=== PATIENT | female | born 1990 | race Caucasian/White ===

== ENCOUNTER 2017-08-11 20:25 | Emergency (ER) | payer OTHER ==
[~2017-08-11] VITALS: Ht 167.6 cm; Wt 64.3 kg
[2017-08-11 20:37] VITALS: TEMP 36.8; Ht 167.6 cm; Wt 64.3 kg
--- NOTE | 2017-08-11 21:22 | EMERGENCY ROOM VISIT NOTE ---
ED Visit Note First contact with patient: 21:10 CHIEF COMPLAINT: Right earache HISTORY OF PRESENT ILLNESS: This 27-year-old female patient presents to the emergency department, ambulatory, with a male friend, complaining of right earache 4 days. The patient states the pain began and was associated with a headache. She states the headache has improved, but the pain remains. She states the pain is intermittent, and associated with muffled hearing in the right ear. She rates the pain 7/10 and describes it as sharp. She states it lasts for a few seconds at a time, then improves. The patient denies any congestion, sore throat, fever, chills, nausea, vomiting, runny nose, sinus pressure, ongoing headache, cough, or other associated symptoms. She has been taking Tylenol about every 4 hours without relief of her pain. The patient has not tried any OTC cold medication or remedies. REVIEW OF SYSTEMS: A 6 system review of systems was performed with positives and pertinent negatives listed in the history of present illness. All other systems were reviewed and are negative. ALLERGIES: None MEDICATIONS: None PMH: None SOCIAL HISTORY: Patient lives locally with family. She denies drug, alcohol, tobacco use. PHYSICAL EXAM: VITALS: Vitals are noted on the nurse's note and reviewed by myself. Vital signs stable. GENERAL: This is a 27-year-old female, in no acute distress, nondiaphoretic, well-developed well-nourished. SKIN: The skin was without rashes, erythema, edema, or bruising. There is no tenting of the skin. Capillary reflex less than 2 seconds. HEAD: Normocephalic atraumatic. EARS: External auditory canals clear, tympanic membranes pearly sandoval without erythema or effusion bilaterally. There is mild fluid level noted behind bilateral TM with associated mild bulging. Serous fluid, no erythema or purulent fluid. EYES: Pupils equal round and reactive to light and accommodation. Conjunctivae without injection, sclerae without icterus. Extraocular movements intact. NOSE: Patent, turbinates without inflammation or discharge. No sinus tenderness. MOUTH: Mucous membranes moist. Tonsils are not enlarged. Pharynx without erythema or exudate. Uvula midline. Airway patent. Tongue does not deviate. NECK: Supple without nuchal rigidity. No lymphadenopathy. No thyromegaly. Cervical spine is nontender. No JVD. HEART: Regular rate and rhythm without murmurs gallops or rubs. LUNGS: Clear to auscultation bilaterally without wheezes, rales or rhonchi. No dullness to percussion. No retractions or accessory muscle use. NEURO: Patient was alert and oriented to person place and time. Normal sensation to light and sharp touch. No focal neurological deficits. EMERGENCY DEPARTMENT COURSE: She was seen and evaluated as above. Discussion with the patient and her male friend at bedside regarding the proper treatment for eustachian tube dysfunction. I do not see any evidence of otitis media or otitis externa. I do not feel that the patient needs an antibiotic at this time. The patient the proper medications to pickle pumper [id number] to help with her discomfort. The patient was discharged home in good condition. I attest that I have personally reviewed the patient's current medication list. Patient was found to have normal blood pressure on screening and does not require follow-up. DIFFERENTIAL DIAGNOSIS: Otitis media, otitis externa, eustachian tube dysfunction, allergic rhinitis, malignancy, and others DIAGNOSIS: Eustachian tube dysfunction DISCHARGE INSTRUCTIONS & TREATMENT: You were seen and evaluated in the emergency department today for right earache , eustachian tube dysfunction. There is no evidence for ear infection at this time. As discussed, use OTC Zyrtec 10mg daily to help drain the fluid from behind your eardrum. You can find this medication over the counter with the allergy medications. As discussed, you should take OTC Mucinex and/or Sudafed for your symptoms. Please do not exceed the recommended daily dosages. Ibuprofen(Motrin, Advil) may be used for fever or pain. Use 600mg every six hours as needed. Take with food. Avoid using more than 2400mg in a 24 hour period. Do not use 2400mg per day for more than three consecutive days without physician direction. Prolonged inappropriate use can lead to stomach upset or ulcers. You may take Naproxen 1-2 tablets twice daily in place of ibuprofen. This medication will help with the swelling in your sinuses. Use this medication to help with earache in place of tylenol and add tylenol for worsening breakthrough pain (AND/OR) Acetaminophen(Tylenol) may be used for fever or pain. Use 1000mg every six hours as needed. Avoid using more than 3000mg in a 24 hour period. For congestion, you may use Flonase OTC. You may want to consider zinc, echinacea, and vitamin C to help boost your immunity. Please get plenty of rest and drink plenty of fluids. Please return or follow-up with your PCP in 1 week if you are not experiencing any improvement in your symptoms. Return to the emergency department for coughing up blood, difficulty breathing, chest pain, worsening symptoms, or for other concerns. Current/Historical Medications No Active Prescriptions or Reported Meds Allergies Coded Allergies: No Known Allergies (Unverified , 08/11/17) Vital Signs Date Time Temp Pulse Resp B/P (MAP) Pulse Ox O2 Delivery O2 Flow Rate FiO2 08/11/17 21:46 84 16 108/67 97 Room Air 08/11/17 20:37 36.8 80 18 114/75 100 Room Air Departure Information Impression Primary Impression: Eustachian tube dysfunction Dispostion Home / Self-Care Condition GOOD Prescriptions No Active Prescriptions or Reported Meds Referrals Juliet Alcantar D.O. (PCP) Patient Instructions ED Upper Resp Infec No Abx Tx, My [facility] Additional Instructions You were seen and evaluated in the emergency department today for right earache , eustachian tube dysfunction. There is no evidence for ear infection at this time. As discussed, use OTC Zyrtec 10mg daily to help drain the fluid from behind your eardrum. You can find this medication over the counter with the allergy medications. As discussed, you should take OTC Mucinex and/or Sudafed for your symptoms. Please do not exceed the recommended daily dosages. Ibuprofen(Motrin, Advil) may be used for fever or pain. Use 600mg every six hours as needed. Take with food. Avoid using more than 2400mg in a 24 hour period. Do not use 2400mg per day for more than three consecutive days without physician direction. Prolonged inappropriate use can lead to stomach upset or ulcers. You may take Naproxen 1-2 tablets twice daily in place of ibuprofen. This medication will help with the swelling in your sinuses. Use this medication to help with earache in place of tylenol and add tylenol for worsening breakthrough pain (AND/OR) Acetaminophen(Tylenol) may be used for fever or pain. Use 1000mg every six hours as needed. Avoid using more than 3000mg in a 24 hour period. For congestion, you may use Flonase OTC. You may want to consider zinc, echinacea, and vitamin C to help boost your immunity. Please get plenty of rest and drink plenty of fluids. Please return or follow-up with your PCP in 1 week if you are not experiencing any improvement in your symptoms. Return to the emergency department for coughing up blood, difficulty breathing, chest pain, worsening symptoms, or for other concerns. Problem Qualifiers Primary Impression: Eustachian tube dysfunction Laterality: left Qualified Codes: H69.82 - Other specified disorders of eustachian tube, left ear
[2017-08-11 21:46] VITALS: BP 108/67; PULSE 84; O2SAT 97
== END 2017-08-11 21:49 | disposition home or self-care (01) ==
LOC: C.EDB 20:27 → C.EDD 21:49
DX: H69.82 Other specified disorders of Eustachian tube, left ear (principal)